=== PATIENT | male | born 1970 | race African-American/Black ===

== ENCOUNTER 2019-01-09 08:38 | Outpatient (CLI) | payer OTHER, BC ==
--- NOTE | 2019-01-09 10:06 | MRI ---
MR the lumbar spine with and without contrast INDICATION: Lumbar radiculopathy COMPARISON: MR the lumbar spine dated June 07, 2011. TECHNIQUE: Multiplanar multisequence MR images were obtained of lumbar spine with and without IV cont rast. Contrast: 20 cc of MultiHance. FINDINGS: Bone marrow: There is diffuse intermediate signal intensity involving the bone marrow. Distal spinal cord and conus: Normal. The conus seen to terminate at L1. Visualized retroperitoneum and paraspinal soft tissues: Normal. No lymphadenopathy demonstrated. Vertebral levels: L5-S1: There is postsurgical change of laminectomy at L5-S1. The asymmetric to the left broad-based d isc protrusion is slightly diminished in size with improvement in the degree of left lateral recess narrowing. There is still moderate narrowing within the left lateral recess with potential for contac t of the traversing left S1 nerve root. Facet joint degenerative changes similar appearing. Loss of disc space height images to the facet hypertrophy induces stable moderate left neural foraminal narro wing. L4-5: There is a stable broad-based bulge with facet and facet hypertrophy inducing stable mild centr al canal narrowing and mild bilateral neural foraminal narrowing, left greater than right. L3-4: There is stable mild facet joint degenerative change but no appreciable central canal or neural foraminal narrowing. L2-3: There is stable mild facet joint degenerative change and a broad-based bulge but no appreciable central canal or neural foraminal narrowing. L1-L2: There is stable mild facet joint degenerative change but no appreciable central canal or neura l foraminal narrowing. T12-L1: There is a stable small central protrusion at T12-L1, mildly effacing the ventral subarachnoi d space but without appreciable central canal or neural foraminal narrowing. Postcontrast series: No abnormal enhancement demonstrated. IMPRESSION: 1. Interval postoperative change of the lumbar spine most consistent with laminectomy at L5-S1. 2. Some improvement in the degree of left lateral recess narrowing at L5-S1 with diminished size of a symmetric to the left broad-based disc protrusion. There still remains moderate left lateral recess narrowing with potential for contact of the traversing left S1 nerve root. 3. Stable moderate left neural foraminal narrowing at L5-S1. 4. Stable mild central canal narrowing at L4-5 with mild bilateral neural foraminal narrowing. 5. Stable small central disc protrusion at T12-L1 without appreciable central canal or neural foramin al narrowing. 6. No abnormal enhancement demonstrated. 7. Diffuse intermediate signal intensity of the bone marrow can be seen in chronic anemias, obesity a nd smoking. Recommend correlation with the clinical examination and potential evaluation with a CBC.
--- NOTE | 2019-01-09 10:40 | RAD ---
LUMBAR SPINE 4 VIEWS: HISTORY: Low back pain. COMPARISON: None. FINDINGS: On the AP radiograph, there is some artifact and poor penetration throughout the spine. On the lateral radiograph, moderate narrowing of the L4-5 and L5-S1 disk space. No significant listh esis. No translation with flexion or extension. No acute fracture or malalignment. IMPRESSION: Degenerative changes without significant translation with flexion or extension. POS: [facility]
[2019-01-09] MEDS ORDERED: Gadobenate Dimeglumine 529 MG/1 ML (20ML VIAL) ONE (11:07)
== END 2019-01-09 08:39 | disposition home or self-care (01) ==
LOC: TBSIIMAG 08:38
PROVIDERS: ATTEND Surgery
DX: M47.26 Other spondylosis with radiculopathy, lumbar region (principal); M48.07 Spinal stenosis, lumbosacral region; M51.17 Intervertebral disc disorders with radiculopathy, lumbosacral region; M48.061 Spinal stenosis, lumbar region without neurogenic claudication; M51.25 Other intervertebral disc displacement, thoracolumbar region; Z98.890 Other specified postprocedural states
CPT/HCPCS: 72110; 72158